=== PATIENT | male | born 1955 | race Caucasian/White ===

== ENCOUNTER 2021-10-22 06:59 | Outpatient (CLI) | payer OTHER, SELFPAY ==
[2021-10-22 08:03] LABS: Anion Gap 4 mmol/L (8-16); Blood Urea Nitrogen 19 mg/dL (9-20); Calcium 9.2 mg/dL (8.4-10.2); Carbon Dioxide 31 mmol/L (22-30); Chloride 105 mmol/L (98-107); Estimated Glomerular Filt Rate > 60; Glucose 96 mg/dL (65-110); Potassium 4.2 mmol/L (3.4-5.0); Sodium 140 mmol/L (137-145)
== END 2021-10-22 07:00 | disposition home or self-care (01) ==
LOC: ANHLAB 07:01
PROVIDERS: PCP Family Medicine; Visit Provider Internal Medicine Cardiovascular Disease
DX: I10 Essential (primary) hypertension (principal)
CPT/HCPCS: 36415; 80048

== ENCOUNTER 2021-10-29 01:43 | Day surgery (SDC) | payer OTHER, SELFPAY ==
[2021-10-14 13:46] VITALS: BMI 38.9
[2021-10-29] VITALS (21 sets, daily range): BP systolic 82–135; BP diastolic 62–93; PULSE 53–73; RESP 14–20; TEMP 36.7–36.8; O2SAT 92–96; BMI 36.8
[2021-10-29 09:21] LABS: Basophils Percent Auto 0.5 % (0.2-1.2); Eosinophils Absolute Auto 0.2 K/mm3 (0-0.3); Hematocrit 46.6 % (42.0-52.0); Hemoglobin 15.5 g/dL (14.0-18.0); Immature Granulocyte Absolute 0.02 K/mm3 (0.00-0.031); Immature Granulocyte Percent A 0.2 % (0-0.5); Lymphocytes Absolute Auto 1.59 K/mm3 (0.9-3.2); Lymphocytes Percent Auto 18.5 % (18.3-44.2); Mean Corpuscular HGB Conc 33.3 g/dl (32-36); Mean Corpuscular Hemoglobin 33.2 pg (26-34); Mean Corpuscular Volume 99.8 fl (80-100); Mean Platelet Volume 10.9 fl (7.4-10.4); Monocytes Absolute Auto 1.2 K/mm3 (0.1-0.6); Monocytes Percent Auto 14.1 % (2.6-8.5); Neutrophils Absolute Auto 5.6 K/mm3 (1.3-6.7); Neutrophils Percent Auto 64.7 % (45.5-73.1); Platelet Count Result 193 k/mm3 (150-375); Red Blood Count 4.67 M/mm3 (4.6-6.20); Red Cell Distribution Width 12.6 % (11.5-14.5); White Blood Count 8.6 K/mm3 (4.5-10.0)
[2021-10-29 09:34] LABS: Anion Gap 6 mmol/L (8-16); Blood Urea Nitrogen 26 mg/dL (9-20); Calcium 8.7 mg/dL (8.4-10.2); Carbon Dioxide 29 mmol/L (22-30); Chloride 104 mmol/L (98-107); Estimated CRCL calculation 113 ml/min; Estimated Glomerular Filt Rate > 60; Glucose 92 mg/dL (65-110); Potassium 3.8 mmol/L (3.4-5.0); Sodium 139 mmol/L (137-145)
--- NOTE | 2021-10-29 09:55 | SUR.PREOP ---
DR. LUU TO BEDSIDE TO SEE PT.
--- NOTE | 2021-10-29 10:12 | WPDMODSED ---
Moderate Sedation Note-Pt Data Patient Data Diagnosis: abnormal stress test obesity bifascicular block wall motion abnormality Present Complaint: no complaints today Procedure to be performed/Plan: left heart catheterization Allergies Allergy/AdvReac Type Severity Reaction Status Date / Time No Known Allergies Allergy Verified 10/29/21 09:36 Home Medications Medication Instructions Recorded Confirmed Type atenolol 25 mg PO DAILY 08/19/19 10/29/21 History brimonidine-timolol [Combigan] 1 drp OPHTHALMIC (EYE) BID 08/19/19 10/29/21 History glucos sul [id number]-Mn 1 cap PO DAILY 08/19/19 10/29/21 History [Glucosamine Chondroitin] latanoprost 1 drp OPHTHALMIC (EYE) DAILY 08/19/19 10/29/21 History losartan-hydrochlorothiazide 1 tablet PO DAILY 08/19/19 10/29/21 History aspirin [Aspir-81] 81 mg PO DAILY 10/29/21 10/29/21 History furosemide 20 mg PO DAILY 10/29/21 10/29/21 History potassium chloride 20 meq PO DAILY 10/29/21 10/29/21 History Current Medications: Active Medications Sodium Chloride (Normal Saline Iv) 500 mls @ 100 mls/hr IV CONT .Q5H EH Sedation/Anesthesia: No previous sedation/anesthesia problems (including family history). [facility] Past Medical History Medical History (Updated 08/23/19 @ 08:05 by Grzegorz Squires MD) HTN (hypertension) Obesity Social History Social History Smoking status: Never smoker Alcohol intake: current Drinks per week: 4 Living arrangements: with family Mod Sed Physical Exam Physical Exam Pre Procedural Exam: Normal: Neck, Throat, Airway, Lungs, Heart Rate, Heart Rhythm, Neuro Exam and Extremities and Variation: Appearance ( obese white male no apparent distress) and Heart Size ( PMI not palpable) Hours since solid foods: 12 Hours since liquid intake: 12 Mallampati Classification: class II Internal Medicine - PN: Obj Da Vital Signs Vital Signs: Vital Signs - 24 hr 10/29/21 09:15 Temperature 36.8 C Pulse Rate 73 Respiratory Rate 16 Blood Pressure 135/93 H Pulse Oximetry 96 Meds/Results Medications: Active Medications Generic Name Dose Route Start Last Admin Trade Name Freq PRN Reason Stop Dose Admin Sodium Chloride 500 mls @ 100 mls/hr 10/29/21 09:00 Normal Saline Iv IV CONT .Q5H EH Labs CBC & Chem 7: 10/29/21 09:04 10/29/21 09:04 Labs: Laboratory Results - last 24 hr 10/29/21 10/29/21 09:04 09:04 WBC 8.6 RBC 4.67 Hgb 15.5 Hct 46.6 MCV 99.8 MCH 33.2 MCHC 33.3 RDW 12.6 Plt Count 193 MPV 10.9 H Immature Gran % (Auto) 0.2 Neut % (Auto) 64.7 Lymph % (Auto) 18.5 [place] % (Auto) 14.1 H Eos % (Auto) 2.0 Baso % (Auto) 0.5 Lymph # (Auto) 1.59 [place] # (Auto) 1.2 H Eos # (Auto) 0.2 Baso # (Auto) 0.0 Abs Immat Gran (auto) 0.02 Absolute Neuts (auto) 5.6 Absolute Nucleated RBC 0.0 Nucleated RBC % 0.0 Sodium 139 Potassium 3.8 Chloride 104 Carbon Dioxide 29 Anion Gap 6 L BUN 26 H Creatinine 0.90 Estim Creat Clear Calc 113 Estimated GFR > 60 Glucose 92 Calcium 8.7 ASA Classification/Sedation ASA Classification/Sedation ASA Class: II Emergent: No Risks: Risks, benefits and alternatives explained and patient/family accepted plan for sedation. Patient re-evaluated immediately prior to sedation.
--- NOTE | 2021-10-29 10:57 | P.PCNCC_ITS ---
Cardiac Cath Procedure Note Date of procedure:: 10/29/21 Performing physician:: Obed Sandoval MD Indication:: Abnormal stress test Brief clinical history:: this is a 65-year-old patient with significant obesit y. Patient is experiencing exertional dyspnea. ECG demonstrates bifascicular block. Nuclear stress test shows evidence of inferior ischemia. Procedure Procedure performed:: Left ventriculogram coronary angiogram Sedation/Medication given:: fentanyl 25 mg Versed 2 mg case start time 10:26 a.m. case end time 10:51 a.m. Access site:: right femoral artery Estimated blood loss:: 25 cc Procedure note:: patient was brought to the cardiac catheterization lab in the postabsorptive state. The right femoral triangle was prepared and draped in the usual fashion. Anesthesia was provided with 1% lidocaine infiltrated locally. Using the modified Seldinger technique a 5 [place] sheath was placed into the femoral artery. After this left heart catheterization was performed. I used a 5 [place] angled pigtail catheter to engage and inject the left ventricle in the GRANT projection. Central hemodynamics well documented with this catheter. Following this the left coronary artery was injected using a 5 [place] FL4 catheter. The right coronary was injected using a 5 [place] JR4 catheter. The cineangiograms were then reviewed and the case terminated. The angiogram was done of the femoral artery through the sheath after which I elected to have the sheath removed with direct manual compression. 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 Findings:: Hemodynamics: Central aortic pressure was 96/58 left ventricle 96/5 end-diastolic pressure 10. There was no gradient on pullback across the aortic valve. Left ventricle: The LV appears to be of normal size. The left ventricle was not optimally opacified as the catheter was in the base of the left ventricle. Overall however contractility appears to be preserved with a global ejection fraction I would visually estimated to be at 50-55%. The left main coronary artery is medium caliber and patent. The left anterior descending is a medium caliber artery extending down to the apex. The LAD and its branches are smooth and angiographically free of disease. Circumflex is a medium to small caliber vessel giving rise to only 1 significant marginal branch and a posterior branch. The circumflex is smooth and free of disease. The right coronary artery is medium in caliber dominant to the posterior circulation. The right coronary artery is angiographically unremarkable. Conclusion:: 1. Right coronary dominant circulation no evidence of coronary artery disease 2. preserved left ventricular systolic function with suboptimal opacification of the left ventricle to to basal position the pigtail catheter. 3. False-positive stress test likely related to patient obesity. Obed Sandoval MD [facility]
[2021-10-29] MEDS: SODIUM CHLORIDE 0.9% IV 1,000 ML 125 ML IV CONT (11:30)
== END 2021-10-29 18:00 | disposition home or self-care (01) ==
PROVIDERS: PCP Family Medicine; Visit Provider Specialist
PROC: 4A023N7 Measurement of Cardiac Sampling and Pressure, Left Heart, Percutaneous Approach (ICD-10-PCS; CPT 93452; principal; 2021-10-29 10:30)
DX: R94.39 Abnormal result of other cardiovascular function study (principal); R06.09 Other forms of dyspnea; I10 Essential (primary) hypertension; E66.9 Obesity, unspecified; Z68.36 Body mass index [BMI] 36.0-36.9, adult; Z79.82 Long term (current) use of aspirin
CPT/HCPCS: 36415; 80048; 85025; 93458; C1887; C1894; J0461; J1644; J2250; J3010; J7030; J7040

== ENCOUNTER 2021-11-10 07:23 | Outpatient (CLI) | payer OTHER, SELFPAY ==
--- NOTE | 2021-11-15 09:49 | WPDHOMESLEEP ---
Sleep Study - Home Unattended Date of Study: 11/10/21 Ordering Provider: Da Smith MD Interpreting Provider: Lea Martin MD Home Sleep Study Type: Watch JOHN Height: 1.93 m Weight: 142.428 kg Body Mass Index: 38.2 Neck Circumference (inches): 19.5 [place]: 5 Reason for Sleep Study Hypersomnolence, increased palpitations Sleep History Marli Grimm is a 65 year old man with recent palpitations. He has had a cardiac evaluation, has hypersomnolence and was referred for further evaluation with a home sleep test. He does not awaken at night feeling short of breath or awaken at night with heartburn, belching or coughing. He frequently snores and it is loud enough that others complain about it. He rarely has trouble sleeping with a cold. He does not wake up gasping for breath at night. He does not have breathing problems at night observed by others. He does not sweat excessively at night. He rarely notices his heart pounding or beating irregularly at night. He does not fall asleep during the day, does not fall asleep involuntarily or while driving. He does not have loss of muscle tone with strong emotion or daytime difficulties due to excessive sleepiness. He does not feel paralyzed on waking or falling asleep nor does he have vivid dreamlike scenes upon awakening or falling asleep. He does not feel afraid to go to sleep. He denies nightmares. He occasionally remembers his dreams. He occasionally has racing thoughts. He does not feel sad or depressed. He rarely feels anxiety. He does not have muscular tension or notice parts his body jerking. He does not kick at night or have crawling or aching feelings in his legs. He does not have any kind of leg pain at night. He does not have morning jaw pain. He does not grind his teeth during sleep, is not bothered by pain during the day or awakened by pain at night. He does not wake up feeling stiff in the morning. He rarely wakes up with sore achy muscles, never wakes up with pain in the neck and spine. Normal bedtime is 11:00 p.m. falling asleep within 10 minutes, typically waking 3-5 times at night to urinate. He is able to return to sleep within 5 minutes. He awakens in the morning by 5:00 a.m.. On weekends, bedtime may be later, between 11:00 p.m. and 12 midnight waking at 7 in the morning. He does not take naps. Most of the time he feels adequate on waking. Feels better in the morning compared to other times of day. Habits: Never smoked tobacco. Caffeine 1 coffee and 1 diet cola per day. Alcohol average 1 beer per day. No recreational drugs. [facility] Past Medical History Medical History (Updated 11/15/21 @ 10:09 by Lea Martin MD) Glaucoma Hearing loss HTN (hypertension) Kidney stone Obesity Family History Family History (Updated 11/15/21 @ 09:58 by Lea Martin MD) Mother Osteoporosis Social History Social History Smoking status: Never smoker Alcohol intake: current Drinks per week: 4 Medications Home Medications Medication Instructions Recorded Confirmed Type Glucosamine Chondroitin 1 cap PO DAILY 08/19/19 10/29/21 History atenolol 25 mg PO DAILY 08/19/19 10/29/21 History brimonidine-timolol [Combigan] 1 drp OPHTHALMIC (EYE) BID 08/19/19 10/29/21 History latanoprost 1 drp OPHTHALMIC (EYE) DAILY 08/19/19 10/29/21 History losartan-hydrochlorothiazide 1 tablet PO DAILY 08/19/19 10/29/21 History aspirin 81 mg PO DAILY 10/29/21 10/29/21 History furosemide 20 mg PO DAILY 10/29/21 10/29/21 History potassium chloride 20 meq PO DAILY 10/29/21 10/29/21 History Sleep Procedure The sleep study was completed using WatchPAT a technically adequate device with seven channels: peripheral arterial tone, actigraphy, body position, snore, respiratory movement, pulse oximetry, sleep staging, and heart rate. Prior to using the device, the patient received verbal and written instructions fo
[2021-11-15 10:12] VITALS: BMI 38.2
== END 2021-11-11 10:48 | disposition home or self-care (01) ==
LOC: ANHCSM 07:24
PROVIDERS: PCP Family Medicine; Visit Provider Internal Medicine Cardiovascular Disease
DX: G47.10 Hypersomnia, unspecified (principal); G47.33 Obstructive sleep apnea (adult) (pediatric)
CPT/HCPCS: 95800

== ENCOUNTER 2022-12-09 14:32 | Outpatient (CLI) | payer OTHER, SELFPAY ==
[2022-12-09 16:15] LABS: Anion Gap 9 mmol/L (8-16); Blood Urea Nitrogen 23 mg/dL (9-20); Carbon Dioxide 28 mmol/L (22-30); Chloride 102 mmol/L (98-107); Estimated Glomerular Filt Rate > 60; Glucose 78 mg/dL (65-110); Potassium 3.6 mmol/L (3.4-5.0); Sodium 139 mmol/L (137-145)
== END 2022-12-09 14:33 | disposition home or self-care (01) ==
PROVIDERS: PCP Family Medicine; Visit Provider Internal Medicine Cardiovascular Disease
DX: I48.0 Paroxysmal atrial fibrillation (principal)
CPT/HCPCS: 36415; 80048

== ENCOUNTER → 2023-06-28 12:23 | Outpatient (CLI) | payer OTHER, SELFPAY ==
--- NOTE | ~2023-06-28 | XR_ITS ---
EXAMINATION:XR cervical spine 4-5V DATE: 06/28/2023 13:41 INDICATION: Neck pain TECHNIQUE: AP, lateral, lateral swimmers and odontoid views of the cervical spine are provided. COMPARISON: None FINDINGS: Alignment is normal. The odontoid process is intact. No fracture is identified. The vertebr al body heights are maintained. There is mild loss of intervertebral disc space height in the lower c ervical spine. There is multilevel mild facet and uncovertebral joint osteoarthritis. Prevertebral so ft tissues are normal. IMPRESSION: 1. Mild cervical spondylosis without acute findings. Reviewed, dictated and finalized at location F. CARE AIDE
--- NOTE | ~2023-06-28 | XR_ITS ---
EXAMINATION: XR shoulder RT min 2V INDICATION: Right shoulder pain TECHNIQUE: Four views of the right shoulder are submitted. COMPARISON: None FINDINGS: Normal alignment. No fracture. There is moderate osteoarthritis of the acromioclavicular magda int and mild osteoarthritis of the glenohumeral joint. Soft tissues are unremarkable. IMPRESSION: 1. Osteoarthritis without acute osseous abnormality. Reviewed, dictated and finalized at location F. OSE DEPARTMENT WORKER
== END ==
PROVIDERS: PCP Family Medicine; Visit Provider Family Medicine
DX: M43.02 Spondylolysis, cervical region (principal); M19.011 Primary osteoarthritis, right shoulder
CPT/HCPCS: 72050; 73030